=== PATIENT | female | born 1985 | race American Indian/Alaskan Native ===

== ENCOUNTER 2017-01-19 18:54 | Inpatient (IN) | payer MEDICAID ==
[2017-01-19] MEDS ORDERED: STADOL IV PRN (19:57)
[2017-01-19] MEDS ORDERED: ZOFRAN IV PRN (19:57)
[2017-01-19] MEDS ORDERED: NARCAN 0.4 MG/1 ML IV PRN (19:57)
[2017-01-19] MEDS ORDERED: SUBLIMAZE IV PRN (19:57)
[2017-01-19] MEDS ORDERED: MINERAL OIL PO PRN (19:57)
[2017-01-19] MEDS ORDERED: XYLOCAINE 2% INFILTRATI ONE (19:57)
[2017-01-19] MEDS ORDERED: BRETHINE SUB-Q PRN (19:57)
[2017-01-19] MEDS ORDERED: ePHEDrine SULFATE IV PRN (19:57)
[2017-01-19] MEDS ORDERED: BRETHINE IVP PRN (19:57)
--- NOTE | 2017-01-19 19:57 | History and Physical Report ---
History of Present Illness Date of admission: 01/19/17 19:29 Chief complaint: 31 yo admitted with contractions and ruptured membranes at term. MBT O pos , Rub Im, GBS neg History of present illness: OB Intake Ethnicity: Father of baby: Gabo Vital Signs Height: 64 in. Weight (lb): 163 BMI: 28 Pre- Weight: 163 BP: 118/ 64 mm Hg Ur. Protein: Negative Ur. Glucose: Negative Chief Complaint/Current Status: c/o missed period..........................igarcia Patient complains of missed menses, nausea and breast tenderness Has never had pap smear Menstrual History Regularity: regular Menses every: 28 days Duration: 3 LMP: 04/29/2016 LMP reliability: definite LMP character: normal test type: urine test Date: 07/11/2016 BC at conception: none Planned ? no EDC Calculations LMP: 02/03/2017 EDC Confirmation: 02/03/2017 Gestational Age: 10 3/7 weeks Past History : 1 Term Births: 0 Premature Births: 0 Living Children: 0 Para: 0 Mult. Births: 0 Prev : 0 Prev. attempt? 0 Aborta: 0 Elect. Ab: 0 Spont. 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 Denies fever, chills, sweats, anorexia, weakness, malaise, weight loss and sleep disorder. Complains of pelvic pain. Denies vaginal discharge, incontinence, dysuria, hematuria, urinary frequency, amenorrhea, menorrhagia, abnormal vaginal bleeding, genital sores, decreased libido, painful periods, painful sex, urinary urgency, hot flashes, vaginal dryness, vaginal itching and vaginal odor. CV Denies chest pains, palpitations, syncope, dyspnea on exertion, orthopnea, PND and peripheral edema. Resp Denies cough, dyspnea at rest, excessive sputum, hemoptysis, wheezing and pleurisy. GI Complains of nausea and vomiting. Denies diarrhea, constipation, change in bowel habits, abdominal pain, melena, hematochezia, jaundice, gas/bloating, indigestion/heartburn, dysphagia and odynophagia. Breast Complains of breast pain. Denies left breast lump, right breast lump, nipple discharge, bloody discharge from nipple, abnormal mammogram and breast enlargement. Psych Denies depression, anxiety, irritability and mood swings. PHYSICAL EXAM HEENT: normocephalic, no lesions or deformities Neck/Thyroid: supple, thyroid normal Skin no significant abnormal lesions or rashes Chest: respiratory effort normal, clear to auscultation Breasts: skin/areolae normal, no masses, no nipple discharge, no erythema/warmth /tenderness, and axillae normal. 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 Assessment and Plan - Patient Problems (1) Active labor at term Onset Date: ~01/19/17 Current Visit: Yes Status: Acute
[2017-01-19] MEDS ORDERED: LACTATED RINGERS 1,000 ML IV SCH (20:00)
[2017-01-19] MEDS ORDERED: PITOCin/NS 30 UNIT/500ML 30 UNITS/500 ML BAG IV SCH (20:00)
[2017-01-19 21:15] LABS: Hematocrit 34.9 % (30.3-42.9); Hemoglobin 11.4 gm/dl (10.1-14.3); Mean Corpuscular HGB Conc 33 % (30-34); Mean Corpuscular Hemoglobin 28 pg (28-32); Mean Corpuscular Volume 87 fl (79-97); Platelet Count 234 K/mm3 (140-440); Red Blood Count 4.01 M/mm3 (3.65-5.03); Red Cell Distribution Width 14.5 % (13.2-15.2); White Blood Count 7.3 K/mm3 (4.5-11.0)
[2017-01-19] MEDS: PITOCin/NS 30 UNIT/500ML 30 UNITS/500 ML BAG IV SCH ×2 (21:48→22:31)
[2017-01-20] MEDS: PITOCin/NS 20 UNIT/1000ML DRIP 20 UNITS/1,000 ML BAG IV SCH ×2 (00:55→02:05)
[2017-01-20] MEDS ORDERED: XYLOCAINE 2% INFILTRATI ONE (00:56)
--- NOTE | 2017-01-20 01:14 | Procedure Note ---
OB Delivery Note - Delivery Date of Delivery: 01/20/17 Surgeon: MAG BELLO Estimated blood loss: 300cc - Vaginal Delivery presentation: vertex Delivery position: OA Intrapartum events: none Delivery induction: none Delivery monitor: external FHT, external uterine Route of delivery: Delivery placenta: spontaneous Delivery cord: 3 umbilical vessels Episiotomy: none Delivery laceration: 1st degree (midline and right labial superficial, reapprox with 3 sutures) Delivery repair: vicryl Anesthesia: local - A at 1 minute: 8 at 5 minutes: 9 Infant Gender: Male (6#8oz vigorous male)
[2017-01-20] MEDS ORDERED: PHENERGAN PR PRN (01:18)
[2017-01-20] MEDS ORDERED: DULCOLAX PR PRN (01:18)
[2017-01-20] MEDS ORDERED: MILK OF MAGNESIA PO PRN (01:18)
[2017-01-20] MEDS ORDERED: PHENERGAN PO PRN (01:18)
[2017-01-20] MEDS ORDERED: LANSINOH TP PRN (01:18)
[2017-01-20] MEDS ORDERED: ZOFRAN IV PRN (01:18)
[2017-01-20] MEDS ORDERED: TYLENOL PO PRN (01:18)
[2017-01-20] MEDS ORDERED: BENADRYL PO PRN (01:18)
[2017-01-20] MEDS ORDERED: TUCKS PAD TP PRN (01:18)
[2017-01-20] MEDS ORDERED: NORCO 5/325 PO PRN (01:18)
[2017-01-20] MEDS ORDERED: PITOCin/NS 20 UNIT/1000ML DRIP 20 UNITS/1,000 ML BAG IV SCH (02:00)
[2017-01-20] MEDS ORDERED: SODIUM CHLORIDE FLUSH SYRINGE 10 ML IV PRN (02:00)
[2017-01-20] MEDS: MOTRIN PO SCH ×4 (02:23→23:46)
--- NOTE | 2017-01-20 06:26 | Progress Note ---
Assessment and Plan - Patient Problems (1) Spontaneous vaginal delivery Onset Date: 01/20/17 Current Visit: Yes Status: Acute Plan to address problem: Pt sitting in bed bottle feeding NB. VSS FF below umb Lochia small Perineum slight swelling intact. Right leg is warm and there are good pulses. Will offer walker for use today. Numbness r/t position while pushing. Pt reassured Encouraged to call for assistance when needed. H&H pending Doing well s/p vag delivery P: continue pathway Advance activity as tolerated. Subjective - Subjective Date of service: 01/20/17 (pt c/o numbness in right hip) Patient reports: appetite normal, voiding normally, pain well controlled, ambulating normally [place]: doing well Objective - Vital Signs Latest vital signs: Vital Signs Temp Pulse Pulse Resp BP BP 01/20/17 04:00 98.2 F 85 22 114/65 01/20/17 02:23 78 120/57 01/20/17 02:09 89 123/66 01/20/17 01:53 88 103/73 01/20/17 01:24 91 H 111/61 01/20/17 01:08 95 H 103/55 01/20/17 01:06 96 H 108/56 01/20/17 00:37 97 H 133/67 01/20/17 00:06 81 127/73 01/19/17 23:36 91 H 117/70 01/19/17 23:06 115 H 139/81 01/19/17 22:37 90 112/63 01/19/17 22:07 84 114/75 01/19/17 21:36 90 115/64 01/19/17 20:17 98.0 F 89 20 130/80 Intake and Output 01/19/17 01/19/17 01/20/17 14:59 22:59 06:59 Other: Weight 180 lb Estimated Blood Loss 300 Patient Weight 01/20/17 06:59 Weight 180 lb - Exam Breasts: Present: normal Cardiovascular: Present: Regular rate Lungs: Present: Normal air movement Abdomen: Present: normal appearance, soft Uterus: Present: normal, fundal height below umbilicus Extremities: Present: normal Deep Tendon Reflex Grade: Normal +2 Incision: Present: normal, dry, intact
[2017-01-20 14:23] LABS: Hematocrit 35.1 % (30.3-42.9); Hemoglobin 11.2 gm/dl (10.1-14.3)
[2017-01-21] MEDS: MOTRIN PO SCH ×2 (05:45→11:31)
[2017-01-21] MEDS ORDERED: BOOSTRIX IM ONE (06:00)
--- NOTE | 2017-01-21 06:00 | Discharge Summary ---
Providers - Providers Date of Admission: 01/19/17 19:29 Date of discharge: 01/21/17 (Pt agrees with d/c) Attending physician: MAG BELLO Primary care physician: MAG BELLO Hospitalization Reason for admission: active labor Delivery: Episiotomy: none Laceration: 1st degree Incision: normal, dry, intact Other procedures: none complications: none Discharge diagnosis: IUP at term delivered baby: male Hospital course: uncomplicated vaginal delivery Pt w/o complaint VSS FF below umb Lochia small Perineum slight swelling intact H&H11/35 No s/sx of anemia Doing well s/p vaginal delivery P: d/c today with instructions RTO 1 week for circ and 4 weeks for PP care Condition at discharge: Good Disposition: DC-01 TO HOME OR SELFCARE - Discharge Diagnoses (1) Spontaneous vaginal delivery Status: Acute Comment: rto 4 weeks pp care Plan - Discharge Medications Prescriptions: Ibuprofen [Motrin 800 MG tab] 800 mg PO TID PRN #30 tablet PRN Reason: Pain Lidocain2.5%/Prilocai2.5% [Emla] 5 gm TP PRN #1 tube - Provider Discharge Summary Activity: routine, no sex for 6 weeks, no heavy lifting 4 weeks, no strenuous exercise Diet: routine Instructions: routine Additional instructions: [] Smoking cessation referral if applicable(refer to patient education folder for contact #) [] Refer to [facility] Booklet Call your doctor immediately for: * Fever > 100.5 * Heavy vaginal bleeding ( >1 pad per hour) * Severe persistent headache * Shortness of breath * Reddened, hot, painful area to leg or breast * Drainage or odor from incision. * Keep incision clean and dry at all times and follow doctor's instructions regarding bathing/showering - Follow up plan Follow up: MAG BELLO MD [Primary Care Provider] - 7 Days (Congratulations! Please call [phone] to schedule your visit in 4 weeks and your son's circumcision in 1 week. Bring the EMLA cream with you to his visit. Do NOT use the cream at home. Call with concerns. )
[2017-01-21 13:15] VITALS: BP 103/62
== END 2017-01-21 14:30 | disposition home or self-care (01) | DRG 775 ==
LOC: TRG 18:54 → LD 18:55 → TRG 19:28 → LD 19:29 → OB 01-20 03:08
PROVIDERS: ADMIT Obstetrics & Gynecology; ATTEND Obstetrics & Gynecology
PROC: 0HQ9XZZ Repair Perineum Skin, External Approach (ICD-10-PCS; principal; 2017-01-20)
PROC: 10E0XZZ Delivery of Products of Conception, External Approach (ICD-10-PCS; 2017-01-20)
DX: O70.0 First degree perineal laceration during delivery (principal); Z37.0 Single live birth; Z3A.39 39 weeks gestation of pregnancy
CPT/HCPCS: 36415; 85014; 85018; 85027; 86850; 86900; 86901; J0595; J2590; J7120

== ENCOUNTER 2018-05-05 06:49 | Outpatient (CLI) | payer MEDICAID ==
[2018-05-05 07:12] VITALS: BP 114/75
[2018-05-05] MEDS ORDERED: LACTATED RINGERS 1,000 ML IV ONE (09:13)
[2018-05-05 09:51] LABS: Bacteria,Urine 1+ /HPF (Negative); Bilirubin,Urine NEG (Negative); Blood,Urine MOD (Negative); Color,Urine Yellow (Yellow); Urobilinogen,Urine < 2.0 mg/dL (<2.0)
[2018-05-05 10:55] LABS: Basophils # (Auto) 0.2 K/mm3 (0.0-0.1); Basophils % (Auto) 1.3 % (0.0-1.8); Eosinophils % (Auto) 0.3 % (0.0-4.3); Hematocrit 35.6 % (30.3-42.9); Hemoglobin 11.5 gm/dl (10.1-14.3); Lymphocytes # (Auto) 1.9 K/mm3 (1.2-5.4); Mean Corpuscular HGB Conc 32 % (30-34); Mean Corpuscular Hemoglobin 29 pg (28-32); Mean Corpuscular Volume 90 fl (79-97); Monocytes # (Auto) 0.6 K/mm3 (0.0-0.8); Monocytes % (Auto) 5.1 % (0.0-7.3); Platelet Count 238 K/mm3 (140-440); Red Blood Count 3.94 M/mm3 (3.65-5.03); Red Cell Distribution Width 14.3 % (13.2-15.2)
--- NOTE | 2018-05-05 12:52 | Ultrasound Report ---
ULTRASOUND RENAL BILATERAL HISTORY: Left-sided back pain. TECHNIQUE: transabdominal ultrasound with color Doppler interrogation. FINDINGS: Mild to moderate bilateral hydronephrosis is identified. This appears to be secondary to extrinsic compression from an intrauterine . There is no evidence for renal cystic disease, mass, calculus or perinephric. The kidneys are normal size, contour and position. The bladder is partially empty with unremarkable IMPRESSION: Bilateral hydronephrosis as described.
== END 2018-05-05 12:35 | disposition home or self-care (01) ==
LOC: TRG 06:49
PROVIDERS: ATTEND Obstetrics & Gynecology
DX: O47.02 False labor before 37 completed weeks of gestation, second trimester (principal); Z3A.27 27 weeks gestation of pregnancy
CPT/HCPCS: 36415; 59025; 76770; 81001; 85025; 96360; 96361; J7120

== ENCOUNTER 2018-07-23 03:20 | Inpatient (IN) | payer MEDICAID, OTHER ==
--- NOTE | 2018-07-23 04:37 | History and Physical Report ---
Addendum entered and electronically signed by ROHITH NOWAK CNM 07/23/18 07:14: ERROR in chart: Pt is @ 36 weeks presented with SROM @ 36 weeks in active labor GBS negative Orders in EMR Original Note: History of Present Illness Date of examination: 07/23/18 (pt presents with SROM and in active labor) Date of admission: 07/23/18 04:21 History of present illness: Past History : 2 Past Medical History: Reviewed history from 07/11/2016 and no changes required: Negative Past Medical History Past Surgical History: BLADE GRINDER Surgery LEEP (04/2017) Family History Summary: Other family member - Has No Family History of Uterine Cancer - Entered On: 02/23/2018 Other family member - Has No Family History of Stomach Cancer - Entered On: 02/23/2018 Other family member - Has No Family History of Spontaneous DVT-PE - Entered On: 02/23/2018 Other family member - Has No Family History of Small Bowel Cancer - Entered On: 02/23/2018 Other family member - Has No Family History of Pancreatic Cancer - Entered On: 02/23/2018 Other family member - Has No Family History of Kidney/Urinary Tract Cancer - Entered On: 02/23/2018 Other family member - Has No Family History of Brain Cancer - Entered On: 02/23/2018 Other family member - Has No Family History of Biliary Tract Cancer - Entered On: 02/23/2018 Social History: Works at [employer] Patient is Smoking History: Patient has never smoked. 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 Infection History Hx of STD: none Personal hx. of genital herpes: no Partner hx. of genital herpes: no Varicella/Chicken Pox Status: Unknown TB Risk: no Genetic History Congenital Heart Defect: Mom: no Dad: no Dawson Disease: Mom: no Dad: no Thalassemia Mom: no Dad: no Neural Tube Defect Mom: no Dad: no Down's Syndrome Mom: no Dad: no Se-Sachs Mom: no Dad: no Sickle Cell Disease/Trait Mom: no Dad: no Hemophilia Mom: no Dad: no Muscular Dystrophy Mom: no Dad: no Cystic Fibrosis Mom: no Dad: no Romance Chorea Mom: no Dad: no Mental Retardation Mom: no Dad: no Fragile X Mom: no Dad: no Other Genetic/Chromosomal Disorder Mom: no Dad: no Child w/other defect Mom: no Dad: no Enviromental Exposures Enviromental Exposures Reviewed Xray Exposure: no Medication, drug, or alcohol use since LMP: no Chemical/Other Exposure: no Exposure to Cat Liter: no Hx of Parvovirus (Fifth Disease): no Comments: Unemployed Active Medications (reviewed today): 19 ORAL TABLET CHEWABLE ( VIT-FE FUMARATE-FA) 1 po q day as directed Current Allergies (reviewed today): No known allergies Past History - Obstetrical History Expected Date of Delivery: 08/15/18 Actual Gestation: 36 Week(s) 5 Day(s) : 2 Para: 1 Hx # Term Pregnancies: 1 Number of Pregnancies: 0 Spontaneous Abortions: 0 Induced : 0 Number of Living Children: 1 Medications and Allergies Allergies Allergy/AdvReac Type Severity Reaction Status Date / Time No Known Allergies Allergy Unverified 01/19/17 19:44 Home Medications Medication Instructions Recorded Confirmed Last Taken Type Progesterone, Micronized 200 mg VG QPM #30 supp 04/25/18 07/23/18 1 Month Ago Rx [Progesterone] ~06/22/18 Pnv,Calcium 72/Iron/Folic Acid 1 tab PO QDAY 07/23/18 07/23/18 1 Day Ago History [ Vitamin Plus Low Iron] ~07/22/18 - Vital Signs Vital signs: Vital Signs Temp Resp 97.8 F 20 07/23/18 03:46 07/23/18 03:46 Temp Pulse Resp BP Pulse Ox 97.8 F 117 H 20 137/71 98 07/23/18 03:46 07/23/18 04:29 07/23/18 03:46 07/23/18 04:29 07/23/18 04:08 - Physical Exam Breasts: Positive: deferred Cardiovascular: Regular rate, Normal S1, Normal S2 Lungs: Positive: Normal air movement Abdomen: Positive: normal appearance, soft, normal bowel sounds. Negative: distention, tenderness Genitourinary (Female): Positive: normal external genitalia Vulva: both: normal Vagina: Positive: normal moisture. Negative: discharge Cervix: Negative: lesion, discharge Uterus: Positive: normal size, normal contour Adnexa: both: normal Anus/Rectum: Positive: normal perianal skin, heme negative. Negative: rectal mass, hemorrhoids Extremities: Positive: normal Deep Tendon Reflex Grade: Normal +2 - Obstetrical FHR: category 1 Uterine Contraction Monitor Mode: External Cervical Dilatation: 6 (SROM clear) Cervical Effacement Percentage: 100 station: -1 Uterine Contraction Pattern: Regular Uterine Tone Measurement Phase: Resting Uterine Contraction Intensity: Moderate Results Result Diagrams: 07/23/18 04:10 All other labs normal. GBS negative HBsAg Screen Negative Negative *1 RPR Non Reactive Non Reactive *2 Rubella Antibodies, IgG 7.64 index Immune >0.99 *3 Non-immune <0.90 Equivocal 0.90 - 0.99 Immune >0.99 ABO Grouping O *4 Rh Factor Positive *5 Please note: Prior records for this patient's ABO / Rh type are not available for additional verification. Antibody Screen Negative Negative *6 WBC 10.5 x10E3/uL 3.4-10.8 *7 RBC 4.00 x10E6/uL 3.77-5.28 *8 Hemoglobin 11.9 g/dL 11.1-15.9 *9 Hematocrit 36.8 % 34.0-46.6 *10 MCV 92 fL 79-97 *11 MCH 29.8 pg 26.6-33.0 *12 MCHC 32.3 g/dL 31.5-35.7 *13 RDW 14.3 % 12.3-15.4 *14 Platelets 258 x10E3/uL 150-379 *15 Neutrophils 65 % Not Estab. *16 Lymphs 29 % Not Estab. *17 Monocytes 4 % Not Estab. *18 Eos 2 % Not Estab. *19 Basos 0 % Not Estab. *20 ! Immature Cells <No Reported Value> *21 Neutrophils (Absolute) 6.8 x10E3/uL 1.4-7.0 *22 Lymphs (Absolute) 3.0 x10E3/uL 0.7-3.1 *23 Monocytes(Absolute) 0.4 x10E3/uL 0.1-0.9 *24 Eos (Absolute) 0.2 x10E3/uL 0.0-0.4 *25 Baso (Absolute) 0.0 x10E3/uL 0.0-0.2 *26 ! Immature Granulocytes 0 % Not Estab. *27 ! Immature Grans (Abs) 0.0 x10E3/uL 0.0-0.1 *28 ! NRBC <No Reported Value> *29 Hematology Comments: <No Reported Value> *30 Tests: (2) AFP Tetra ([id number]) ! Results Report *31 ! Test Results: *Screen Negative* *32 Tests: (4) HB Solu + Rflx Frac (393292) Hemoglobin (Hgb) Solubility Negative Negative *57 Tests: (5) Panel 385471 ([id number]) HIV Screen 4th Generation wRfx Non Reactive Non Reactive *58 Tests: (6) HCV Ab w/Rflx to Verification ([id number]) ! HCV Ab <0.1 s/co ratio 0.0-0.9 *59 Tests: (7) Comment: ([id number]) ! Comment: SPRCS *60 Non reactive HCV antibody screen is consistent with no HCV infection, unless recent infection is suspected or other evidence exists to indicate HCV infection. Tests: (8) Urine Culture, Routine ([id number]) Urine Culture, Routine Final report *61 Tests: (9) Result ([id number]) ! Result 1 No growth *62 Assessment and Plan 32yo @ 38 weeks for IOL recommended by AMFM GBS negative Cervidil Orders in EMR aware of admission
[2018-07-23] MEDS ORDERED: BRETHINE SUB-Q PRN (04:44)
[2018-07-23] MEDS ORDERED: MINERAL OIL PO PRN (04:44)
[2018-07-23] MEDS ORDERED: SUBLIMAZE IV PRN (04:44)
[2018-07-23] MEDS ORDERED: ZOFRAN IV PRN (04:44)
[2018-07-23] MEDS ORDERED: XYLOCAINE 2% INFILTRATI ONE (04:44)
[2018-07-23] MEDS ORDERED: LACTATED RINGERS 1,000 ML ONE (04:47)
[2018-07-23] MEDS ORDERED: LACTATED RINGERS 1,000 ML IV SCH (05:00)
[2018-07-23] MEDS ORDERED: PITOCin/NS 20 UNIT/1000ML DRIP 20 UNITS/1,000 ML BAG IV SCH (05:00)
[2018-07-23] MEDS ORDERED: LANSINOH TP PRN (05:20)
[2018-07-23] MEDS ORDERED: PHENERGAN PO PRN (05:20)
[2018-07-23] MEDS ORDERED: BENADRYL PO PRN (05:20)
[2018-07-23] MEDS ORDERED: TUCKS PAD TP PRN (05:20)
[2018-07-23] MEDS ORDERED: DULCOLAX PR PRN (05:20)
[2018-07-23] MEDS ORDERED: MILK OF MAGNESIA PO PRN (05:20)
--- NOTE | 2018-07-23 05:23 | Procedure Note ---
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 Cord blood obtained Placenta and membrane delivered complete and intact, 3 vessel cord. 8/9, EBL 300, Wgt 5-5 Pitocin IVFs Mom and baby remain in LDR stable - Infant A at 1 minute: 8 at 5 minutes: 9 Infant Gender: Male (wgt 5-5)
[2018-07-23 05:38] LABS: Hematocrit 36.5 % (30.3-42.9); Hemoglobin 12.2 gm/dl (10.1-14.3); Mean Corpuscular HGB Conc 33 % (30-34); Mean Corpuscular Volume 91 fl (79-97); Platelet Count 223 K/mm3 (140-440); Red Blood Count 4.03 M/mm3 (3.65-5.03); Red Cell Distribution Width 14.3 % (13.2-15.2)
[2018-07-23] MEDS: IBUPROFEN PO SCH ×4 (06:00→22:38)
[2018-07-23] MEDS ORDERED: SODIUM CHLORIDE FLUSH SYRINGE 10 ML IV PRN (06:00)
[2018-07-23] MEDS: TYLENOL PO PRN (10:40)
[2018-07-23 18:33] LABS: Hematocrit 36.2 % (30.3-42.9); Hemoglobin 11.8 gm/dl (10.1-14.3)
[2018-07-24] MEDS ORDERED: M-M-R II VACCINE SUB-Q ONE (05:20)
[2018-07-24] MEDS ORDERED: BOOSTRIX IM ONE (06:00)
[2018-07-24] MEDS: IBUPROFEN PO SCH ×5 (07:18→23:43)
[2018-07-24] MEDS: TYLENOL PO PRN (10:09)
--- NOTE | 2018-07-24 18:35 | Progress Note ---
Assessment and Plan 32 y.o. s/p ppd1. Patient reports feeling well, no complaints. Pain is well controlled with tylenol prn. Reports minimal bleeding with no clots. Perineum intact. Fundus firm. Reports baby boy is doing well. Breast feeing going well, supplementing with formula as needed. Circumcision desired for . Instructed to call office to schedule circ appt for 1 week. Patient desires discharge tomorrow. Declines any post delivery contraception. Subjective - Subjective Date of service: 07/24/18 (AM rounds) Principal diagnosis: S/P PPD 1 Patient reports: appetite normal, voiding normally, pain well controlled, amb ulating normally : doing well Objective - Vital Signs Latest vital signs: Vital Signs Temp Pulse Resp BP BP Pulse Ox 07/24/18 16:15 98.3 F 87 18 97/63 98 07/24/18 08:10 98.1 F 70 18 106/60 07/24/18 02:47 98.6 F 85 16 108/72 95 Intake and Output 07/24/18 07/24/18 07/24/18 07:59 15:59 23:59 Intake Total 120 960 Balance 120 960 Intake: Oral 360 Intake, Free Water 120 600 Other: Total, Intake Amount 240 # Voids Void 1 - Exam Breasts: Present: normal Cardiovascular: Present: Regular rate Lungs: Present: Clear to auscultation Abdomen: Present: normal appearance, soft, normal bowel sounds Vulva: both: normal Uterus: Present: normal, firm Extremities: Present: normal
[2018-07-25] MEDS: IBUPROFEN PO SCH ×3 (05:47→18:36)
[2018-07-25 08:32] VITALS: BP 105/77
--- NOTE | 2018-07-25 13:32 | Discharge Summary ---
Providers - Providers Date of Admission: 07/23/18 04:21 Date of discharge: 07/25/18 Attending physician: SOHA ATWOOD Primary care physician: SOHA ATWOOD Hospitalization Reason for admission: active labor, IUP - , labor, rupture of membranes Delivery: Episiotomy: none Laceration: none Other procedures: none complications: none Discharge diagnosis: delivery [place] baby: female Hospital course: Patient was admitted with pre-term premature rupture of membranes and underwent a normal spontaneous vaginal delivery. Her course was benign. She was afebrile throughout her stay. Her day 1 hematocrit was 36%. Patient is breast-feeding and does not desire control . Condition at discharge: Good Disposition: DC-01 TO HOME OR SELFCARE - Discharge Diagnoses (1) premature rupture of membranes Status: Acute Qualifiers: PROM onset of labor timing: onset of labor within 24 hours of rupture Qualified Code(s): O42.019 - premature rupture of membranes, onset of labor within 24 hours of rupture, unspecified trimester (2) Active labor Status: Resolved (3) Spontaneous vaginal delivery Status: Resolved Comment: rto 4 weeks pp care Plan - Discharge Medications Prescriptions: Lidocain2.5%/Prilocai2.5% [Emla] 5 gm TP ONCE PRN #1 tube PRN Reason: Pain Ibuprofen [Motrin 800 MG tab] 800 mg PO Q8HR PRN #30 tablet PRN Reason: Pain - Provider Discharge Summary Activity: routine, no sex for 6 weeks, no strenuous exercise Diet: routine Instructions: routine Additional instructions: [] Smoking cessation referral if applicable(refer to patient education folder for contact #) [] Refer to [facility] Booklet Call your doctor immediately for: * Fever > 100.5 * Heavy vaginal bleeding ( >1 pad per hour) * Severe persistent headache * Shortness of breath * Reddened, hot, painful area to leg or breast * Drainage or odor from incision. *Patient to follow-up in office in 4 weeks. Patient to call office to schedule son's circumcision - Follow up plan Follow up: SOHA ATWOOD MD [Primary Care Provider] - 7 Days Forms: [facility] Discharge Summary
== END 2018-07-25 19:30 | disposition home or self-care (01) | DRG 775 ==
LOC: SPVWC 03:20 → TRG 03:40 → SPVWC 04:20 → LD 04:21 → OB 08:35
PROVIDERS: ADMIT Obstetrics & Gynecology; ATTEND Obstetrics & Gynecology
PROC: 10E0XZZ Delivery of Products of Conception, External Approach (ICD-10-PCS; principal; 2018-07-23)
PROC: 3E0234Z Introduction of Serum, Toxoid and Vaccine into Muscle, Percutaneous Approach (ICD-10-PCS; 2018-07-24)
DX: O42.013 Preterm premature rupture of membranes, onset of labor within 24 hours of rupture, third trimester (principal); Z3A.36 36 weeks gestation of pregnancy; Z37.0 Single live birth; Z23 Encounter for immunization
CPT/HCPCS: 36415; 85014; 85018; 85027; 86592; 86850; 86900; 86901; 88307; 90707; G0378; J2590; J7120